=== PATIENT | female | born 1945 | race Caucasian/White ===

== ENCOUNTER 2018-06-27 12:58 | Outpatient (CLI) | payer MEDICARE, OTHER ==
--- NOTE | 2018-06-27 14:25 | RAD ---
LUMBAR SPINE TWO VIEWS: History: Back pain. FINDINGS: Lumbar vertebrae maintain normal height and alignment. There is loss of disc space at L5-S1. Mild deg enerative spurring. Moderate facet hypertrophy at L4-5 and L5-S1. No evidence of spondylolisthesis. IMPRESSION: Mild to moderate degenerative change as described. POS: [facility]
--- NOTE | 2018-06-27 14:26 | RAD ---
THORACIC SPINE TWO VIEWS: History: Back pain with osteoporosis. FINDINGS: Slight curvature to the right in the AP view. Thoracic vertebrae maintain normal height and alignment . Mild degenerative osteophytes are seen. No lytic or blastic process. No acute compression deformity . IMPRESSION: Mild degenerative changes of thoracic spine. POS: [facility]
--- NOTE | 2018-06-27 15:37 | RAD ---
LEFT KNEE 2 VIEWS: Date: 06/27/18 HISTORY: Surgery last year. Pain. FINDINGS: Extensive internal fixation hardware along the proximal tibia. No perihardware lucency. Joint spaces appear to be preserved. There is diffuse bone demineralization. No joint effusion. IMPRESSION: Uncomplicated internal fixation hardware. POS: [facility]
== END 2018-06-27 12:59 | disposition home or self-care (01) ==
LOC: BICMAMMO 12:58
PROVIDERS: ATTEND Internal Medicine Geriatric Medicine
DX: M47.816 Spondylosis without myelopathy or radiculopathy, lumbar region (principal); M54.5 Low back pain; M25.562 Pain in left knee; M47.894 Other spondylosis, thoracic region; M47.896 Other spondylosis, lumbar region; Z98.890 Other specified postprocedural states
CPT/HCPCS: 72070; 72100; 77063; 77067

== ENCOUNTER 2018-07-10 13:22 | Outpatient (CLI) | payer MEDICARE, OTHER | END 2018-07-10 13:23 | disposition home or self-care (01) | LOC: BICMAMMO 13:22 | PROVIDERS: ATTEND Internal Medicine Geriatric Medicine | DX: R92.2 Inconclusive mammogram (principal) | CPT/HCPCS: 77065; G0279 ==

== ENCOUNTER 2019-02-07 10:33 | Observation (INO) | payer MEDICARE, OTHER ==
[2019-02-07 11:19] LABS: #Eosinphils 0.1 thou/uL (0.0-0.7); #Lymphocytes 1.6 thou/uL (1.20-3.40); #Monocytes 0.3 thou/uL (0.11-0.59); #Neutrophils 3.9 thou/uL (1.40-6.50); %Basophils 0.2 % (0.0-1.0); %Eosinophils 1.5 % (0.0-10.0); %Lymphocytes 27.4 % (21.0-51.0); %Monocytes 4.6 % (0.0-10.0); %Neutrophils 66.2 % (42.0-75.0); Hemoglobin 12.1 g/dL (12.0-16.0); Mean Corpuscular HGB CONC 32.9 g/dL (32.0-36.0); Mean Corpuscular Hemoglobin 29.8 pg (27.0-31.0); Mean Corpuscular Volume 90.6 fL (78.0-98.0); Mean Platelet Volume 7.7 fL (7.4-10.4); Platelet Count 263 thou/uL (130-400); RBC Distribution Width 11.8 % (11.5-14.5); Red Blood Cell (RBC) Count 4.07 mill/uL (4.20-5.40); White Blood Cell (WBC) Count 5.9 thou/uL (4.8-10.8)
--- NOTE | 2019-02-07 11:39 | RAD ---
XR Chest 1 View Portable HISTORY: Fall chest pain COMPARISON: None FINDINGS: The heart size is normal. The lungs are well expanded without focal areas of consolidation, pneumothorax or pleural effusions. IMPRESSION: No radiographic evidence of acute cardiopulmonary process.
[2019-02-07 11:46] LABS: ALT (SGPT) 16 U/L (8-55); AST (SGOT) 21 U/L (5-34); Albumin 3.7 g/dL (3.4-4.8); Alkaline Phosphatase 50 U/L (40-150); Anion Gap 11 mmol/L (10-20); BUN (Urea Nitrogen) 11 mg/dL (9.8-20.1); Bilirubin, Total 0.5 mg/dL (0.2-1.2); Calc. Creatinine Clearance 0 mL/min (70-130); Calcium 9.3 mg/dL (7.8-10.44); Carbon Dioxide 27 mmol/L (23-31); Chloride 104 mmol/L (98-107); Estimated GFR-MDRD 70; Globulin 2.1 g/dL (2.4-3.5); Glucose 123 mg/dL (83-110); Potassium 3.8 mmol/L (3.5-5.1); Protein, Total 5.8 g/dL (6.0-8.3); Sodium 138 mmol/L (136-145)
--- NOTE | 2019-02-07 12:00 | RAD ---
XR Wrist 3 Rt View STANDARD: 02/07/2019 11:01 AM CLINICAL INDICATION: Fall with pain COMPARISON: None. FINDINGS: Fracture:Subtle lucency is seen at the radial styloid with mild articular surface irregularity Arthropathy:Mild arthropathy. Evidence of prior trapeziectomy. Incidental findings:Surgical anchors are seen at the radial aspect of the carpus and base of hand There is generalized demineralization of osseous structures, with pronounced areas of lucency at the imaged radial diaphysis, nonspecific. IMPRESSION: 1. Subtle osseous irregularity underlying the radial styloid. Correlate for focal, new onset pain. 2. Generalized osseous demineralization. Possibility of underlying osseous infiltrative process canno t be excluded. If there is clinical concern, follow-up with whole body bone scan may prove useful. 3. Postsurgical changes of the radial aspect of the wrist and base of hand.
[2019-02-07 12:29] LABS: INR-International Normal Ratio 1.1; Prothrombin Time 13.9 SEC (12.0-14.7)
--- NOTE | 2019-02-07 12:45 | RAD ---
RIGHT HIP 2 VIEWS: HISTORY: Fall, right hip pain. FINDINGS/IMPRESSION: The fractures involving the superior and inferior pubic rami. POS: [facility]
[2019-02-07] MEDS ORDERED: Fentanyl 100 MCG/2 ML VIAL ONE (13:15)
[2019-02-07] MEDS ORDERED: Ondansetron PF 4 MG/2 ML Vial IVP PRN (13:32)
[2019-02-07] MEDS ORDERED: Dextrose 5% in Water 1,000 ML IV PRN (13:32)
[2019-02-07] MEDS ORDERED: Dextrose 50% Abboject 50 ML SYRINGE SLOW IVP PRN (13:32)
[2019-02-07] MEDS ORDERED: hydrALAZINE 20 MG/ML VIAL SLOW IVP PRN (13:32)
[2019-02-07] MEDS ORDERED: Morphine 2 MG/ML SYRINGE SLOW IVP PRN (13:32)
[2019-02-07] MEDS ORDERED: Promethazine HCl 25 MG/ML VIAL IM PRN (13:32)
[2019-02-07] MEDS ORDERED: traMADol HCl 50 MG TAB PO PRN (13:35)
--- NOTE | 2019-02-07 13:45 | CON ---
DATE OF CONSULTATION: 02/07/2019 CONSULTING PHYSICIAN: Dr. Rc Orlando. REASON FOR CONSULTATION: Superior and inferior pubic rami fractures. HISTORY OF PRESENT ILLNESS: This is a 73-year-old female, who presented to our facility after a ground level fall when she was tripped by a dog. She presented with complaints of right wrist pain and right hip pain. Further workup and evaluation showed fractures of the right inferior and superior pubic rami. X-rays of the wrist were negative for acute findings. She denies any head trauma or loss of consciousness. Of note, she does report an injury from a different dog that she tripped over two days ago, for which she was seen and x-rays were obtained of the left wrist. There were no acute findings in this x-ray either. She was placed in a Velcro volar wrist splint. Currently at bedside, the patient has friends with her. She reports pain and difficulty with standing. She has some discomfort in her back right now, which she says is radiating. Some dull pain in her right hip. Otherwise, no numbness or tingling or other complaints. PAST MEDICAL HISTORY: Significant for hypothyroidism, colitis, osteoporosis. PAST SURGICAL HISTORY: Significant for appendectomy, section, hysterectomy, left hip replacement, left knee replacement, spine surgery, and tonsillectomy. SOCIAL HISTORY: The patient lives with friends. She has an upstairs room in their house. She is an independent ambulator. She denies any alcohol use or drug use. The patient is a former tobacco user, smoked cigarettes and quit smoking more than 10 years ago. FAMILY HISTORY: Reviewed and noncontributory. REVIEW OF SYSTEMS: A 10-point review of systems was conducted and otherwise negative except for stated above. PHYSICAL EXAMINATION: VITAL SIGNS: Blood pressure 127/65, pulse of 63, respiratory rate of 16, temperature of 98.1, and O2 saturation 96% on room air. GENERAL: The patient is awake and alert. She is in no apparent distress. She is lying supine in the ER with friends present at bedside. She is pleasant and cooperative with exam findings today. HEENT: Head is normocephalic and atraumatic. NECK: Supple. Trachea, midline. LUNGS: Breathing is nonlabored. EXTREMITIES: The lower extremities were evaluated. Leg lengths appear equal. No external rotation or shortening. The patient is able to actively flex the hip while in bed. Distal neurovascular status intact. Skin is intact overlying the hip region. No ecchymosis noted. Evaluation of the right wrist shows some swelling over the dorsum of the wrist, there appears to be some synovial fluid. This is mildly tender to palpation. She is able to flex and extend. She is able to make a fist. Distal neurovascular status is intact. RADIOGRAPHIC STUDIES: Reviewed today including three views of the right wrist as well as views of the right hip, demonstrate no acute findings in the right wrist. Views of the hip show a superior and inferior pubic rami fracture. The superior pubic rami fracture is mildly displaced. No other acute findings are visualized. ASSESSMENT: Status post ground level fall with right superior and inferior pubic rami fractures, wrist sprain on the right. PLAN: At this time, I have discussed this patient with Dr. Orlando as well as with Trauma Services today. I think she is a good candidate to be transferred from the ER over to inpatient rehab, being that this is a nonoperative fracture in the pelvis. Unfortunately, at this time, there are no available beds at rehab. The patient is unable to be discharged back home due to her inability to ambulate and living on the second floor. We would like to admit her to the Trauma Services. They are amenable to this plan of care. She may weightbear as tolerated with assistance from Physical Therapy. This is going to be a bit tricky, because she has had two wrist injuries in the last two days. If she is able, she may weightbear through her wrist with her wrist splints. If she is unable secondary to pain, we will provide her with a platform walker. Once a bed becomes available at inpatient rehab, we will transfer her that way. She may weightbear as tolerated on the right lower extremity. Job ID: [id number]
[2019-02-07] MEDS: traMADol HCl 50 MG TAB PO SCH ×2 (16:24→20:34)
[2019-02-07] MEDS: Acetaminophen 500 MG TAB PO SCH ×2 (16:26→20:32)
--- NOTE | 2019-02-07 17:25 | HP ---
TRAUMA SURGEON: Dr. Sylvester. CONSULTING PHYSICIAN: Dr. Orlando. HISTORY OF PRESENT ILLNESS: The patient is a 73-year-old female who presented to the emergency department today via EMS. She reported while walking her dog on a leash, another unleashed dog approached hers. Subsequently, the dogs chased each other around her, and the patient became hung up in her leash, and she fell onto her right side. She denies loss of consciousness or anticoagulation use. She was not ambulatory on the scene and arrived via EMS. On my evaluation, she reported pelvic and lower back pain. Her right wrist was also swollen and painful as well. She denies nausea, vomiting, or diarrhea. Denies weakness, decreased sensation, numbness, or tingling. REVIEW OF SYSTEMS: All additional 10-point review of systems negative except as indicated above. PAST MEDICAL HISTORY: Hypothyroidism and colitis. PAST SURGICAL HISTORY: Surgery to repair left knee fracture, bilateral hand basal joint surgery, bilateral cataract surgery, left hip replacement surgery, right hip fracture surgery, bunion surgery, D and C, , endometriosis surgery, surgery for L5 ruptured disk, appendectomy, tonsillectomy. MEDICATIONS: Levothyroxine and Estrace. ALLERGIES: NO KNOWN DRUG ALLERGIES. HOWEVER, BECAUSE OF THE PATIENT'S COLITIS , SHE SHOULD AVOID THE FOLLOWING MEDICINES; ACARBOSE, ASPIRIN, NSAIDS, CLOZAPINE, ENTACAPONE, FLAVONOIDS, PROTON PUMP INHIBITORS, RANITIDINE, SERTRALINE, TICLOPIDINE, CARBAMAZEPINE, CELECOXIB, DULOXETINE, FLUVASTATIN, FLUTAMIDE, OXETORONE, MADOPAR , PAROXETINE, SIMVASTATIN, STALEVO, CIMETIDINE, GOLD SALTS, PIASCLEDINE. PHYSICAL EXAMINATION: VITAL SIGNS: Temperature 98.8, pulse 60, respirations 16, oxygen saturation 99 % on room air, blood pressure 132/68. PRIMARY SURVEY: Airway intact. Adequate breath sounds bilaterally. 2+ pulses palpable in the bilateral radials, femorals, and DPs bilaterally. GCS is 15. Gross motor and sensation are intact. No lacerations or external bleeding. Bruising to the posterior aspect of the right wrist. SECONDARY SURVEY: HEAD: Normocephalic and atraumatic. No gross palpable skull deformities or tenderness. EYES: Pupils 3 to 2, equal, round, and reactive to light bilaterally. ENT: No hemotympanum. No epistaxis. No septal hematoma. Midface stable to manipulation. No blood in the oropharynx. Dentition is intact. No anterior neck tenderness/crepitus/injury. C-SPINE: No step-offs or deformities. Nontender. C-collar not in place. CHEST: Nontender. No crepitus. No abrasions or ecchymosis noted. Equal chest movement. ABDOMEN: Soft, nontender, and nondistended. PELVIS: Stable to palpation. Right-sided tenderness. No abrasions or ecchymosis. RECTAL: Deferred. GENITOURINARY: Deferred. EXTREMITIES: Right-sided wrist swelling and bruising to the posterior surface. Otherwise, no bony deformities. No abrasions noted. 2+ pulses in the bilateral radials, femorals, and DPs. BACK/SPINE: No step-offs, deformities, or tenderness to palpation of the thoracic or lumbar spine. No abrasions or ecchymosis noted. NEUROLOGIC: 5/5 strength in the bilateral online content editor, plantar flexion, and dorsiflexion. Gross normal sensation x4 extremities. GCS is 15. Pupils are equal, round, and reactive to light bilaterally. LABORATORY FINDINGS: White count 5.9, hemoglobin 12.1, hematocrit 36.8, platelets 263. INR 1.1. Sodium 138, potassium 3.8, chloride 104, carbon dioxide 24, BUN 11, creatinine 0.80, glucose 138. DIAGNOSTIC FINDINGS: Chest x-ray demonstrates no radiographic evidence of acute cardiopulmonary process. Right hip x-ray demonstrates the fracture involving the superior and inferior pubic rami. X-ray of the right wrist demonstrates subtle osseous irregularity underlying the radial styloid, correlate to focal new onset pain, generalize osseous demineralization. Possibility of underlying osseous infiltrative process cannot be excluded. If there is clinical concern, followup with whole-body scan may prove useful. Postsurgical changes to the radial aspect of the wrist and base of the hand. ASSESSMENT: 1. Status post mechanical fall from standing. 2. Right inferior and superior pubic rami fracture. 3. Sprain to right wrist with styloid irregularity. 4. Sprain to left wrist, from a few days ago. 5. History of hypothyroidism and colitis. PLAN: The patient will be admitted to the Trauma Service for pain control and evaluation for acute rehab. She will have a regular diet. Pain control will be with scheduled Tylenol, scheduled tramadol p.r.n. with additional 50 mg for breakthrough pain as well as p.r.n. morphine. The patient cannot take NSAIDs or aspirin due to previous colitis. She is to work with Physical and Occupational Therapy. We will restart her home medications as clinically indicated. We will hold DVT chemoprophylaxis at this time. The patient will be discussed with Dr. Sylvester after this dictation. Job ID: [id number] [facility]
[2019-02-07 18:44] VITALS: BMI 18.8
[2019-02-07] MEDS ORDERED: diphenhydrAMINE 12.5 MG/5 ML UDCUP PO PRN (18:51)
[2019-02-07] MEDS: Senokot S 8.6-50 MG TAB PO SCH (20:33)
[2019-02-07] MEDS ORDERED: Famotidine 20 MG TAB PO SCH (21:00)
[2019-02-08] MEDS: traMADol HCl 50 MG TAB PO SCH ×4 (02:19→19:03)
[2019-02-08] MEDS: Acetaminophen 500 MG TAB PO SCH ×4 (02:19→19:01)
[2019-02-08] MEDS: Levothyroxine Sodium 75 MCG TAB PO SCH (05:17)
[2019-02-08] MEDS ORDERED: Teriparatide [Forteo] 20 MCG SC SCH ×2 (09:00→21:00)
[2019-02-08] MEDS: Senokot S 8.6-50 MG TAB PO SCH ×2 (09:03→20:24)
[2019-02-08] MEDS: Polyethylene Glycol 3350 17 GM Packet PO SCH (09:09)
[2019-02-08 09:17] LABS: #Eosinphils 0.1 thou/uL (0.0-0.7); #Lymphocytes 1.6 thou/uL (1.20-3.40); #Monocytes 0.5 thou/uL (0.11-0.59); #Neutrophils 3.7 thou/uL (1.40-6.50); %Basophils 0.8 % (0.0-1.0); %Eosinophils 2.1 % (0.0-10.0); %Lymphocytes 26.3 % (21.0-51.0); %Monocytes 7.6 % (0.0-10.0); %Neutrophils 63.2 % (42.0-75.0); Hemoglobin 11.8 g/dL (12.0-16.0); Mean Corpuscular HGB CONC 32.5 g/dL (32.0-36.0); Mean Corpuscular Hemoglobin 29.6 pg (27.0-31.0); Mean Corpuscular Volume 91.1 fL (78.0-98.0); Mean Platelet Volume 7.6 fL (7.4-10.4); Platelet Count 213 thou/uL (130-400); Red Blood Cell (RBC) Count 3.99 mill/uL (4.20-5.40); White Blood Cell (WBC) Count 5.9 thou/uL (4.8-10.8)
[2019-02-08 09:36] LABS: Anion Gap 7 mmol/L (10-20); BUN (Urea Nitrogen) 10 mg/dL (9.8-20.1); Calc. Creatinine Clearance 53 mL/min (70-130); Calcium 9.1 mg/dL (7.8-10.44); Carbon Dioxide 29 mmol/L (23-31); Chloride 101 mmol/L (98-107); Estimated GFR-MDRD 77; Glucose 114 mg/dL (83-110); Potassium 3.7 mmol/L (3.5-5.1); Sodium 133 mmol/L (136-145)
[2019-02-08] MEDS: Enoxaparin Sodium 30 MG/0.3 ML SYRINGE SC SCH (09:54)
[2019-02-08] MEDS ORDERED: Melatonin 3 MG TAB PO PRN (19:21)
--- NOTE | 2019-02-08 21:01 | PRG ---
DATE OF SERVICE: 02/08/2019 SUBJECTIVE: This is a 73-year-old female with a mechanical fall. The patient sustained a right superior and inferior pubic rami fracture, right wrist sprain with styloid deformity. The patient's injuries are nonoperative according to Orthopedic Surgery. The patient had no overnight events. The patient was admitted for pain control and the need for inpatient rehab. The patient reports that her pain is well controlled. The patient with a knee immobilizer in place. The patient reports that she did not sleep well last night, but it was not due to pain, states she just was unable to fall asleep. OBJECTIVE: VITAL SIGNS: Temperature 97.1, pulse 56, respirations 16, SpO2 of 95% on room air, blood pressure 99/64. GENERAL: The patient is awake, alert, in no distress, lying in hospital bed. HEENT: Head is normocephalic, atraumatic. Mucous membranes are moist. CHEST: Equal chest rise and fall. No respiratory distress. Bilateral breath sounds clear. HEART: Regular rate and rhythm. No pedal edema. ABDOMEN: Soft, nontender, nondistended. MUSCULOSKELETAL: Tenderness in right hip. EXTREMITIES: Moves all extremities. Positive distal pulses 2+. Left wrist splint in place. The patient with old wrist sprain. LABORATORY DATA: WBC 5.9, RBC 3.99, hemoglobin 11.8, platelets 213. Sodium 133, potassium 3.7, chloride 101, BUN 10, creatinine 0.74, estimated GFR 77, glucose 114, calcium 9.1, magnesium 2.0. IMPRESSION: 1. Status post mechanical fall from standing. 2. Right inferior and superior pubic rami fracture, nonoperative. 3. Sprain to right wrist with styloid irregularity. 4. Sprained left wrist from a few days ago. 5. History of hypothyroidism and colitis. PLAN: We will continue pain regimen. The patient has pending rehab placement. We will continue regular diet. We will continue to refrain from any NSAIDs or aspirin due to previous colitis. We will start the patient on chemical DVT prophylaxis with Lovenox. We will continue physical and occupational therapy. We will restart the patient's home levothyroxine. We will place the patient on melatonin as the patient stated she had difficulty falling asleep last night. Plan was discussed with Dr. English, who agrees. Job ID: [id number]
[2019-02-09] MEDS: traMADol HCl 50 MG TAB PO SCH ×3 (00:43→14:02)
[2019-02-09] MEDS: Acetaminophen 500 MG TAB PO SCH ×3 (00:45→14:02)
[2019-02-09] MEDS: Levothyroxine Sodium 75 MCG TAB PO SCH (06:45)
[2019-02-09] MEDS ORDERED: Estradiol 1 MG TAB PO SCH (09:00)
[2019-02-09] MEDS ORDERED: Fleet Enema 133 ML BOT PR SCH (09:15)
[2019-02-09] MEDS: Polyethylene Glycol 3350 17 GM Packet PO SCH (09:42)
[2019-02-09] MEDS: Senokot S 8.6-50 MG TAB PO SCH (09:42)
[2019-02-09] MEDS: Enoxaparin Sodium 30 MG/0.3 ML SYRINGE SC SCH (09:42)
--- NOTE | 2019-02-09 10:41 | PRG ---
DATE OF SERVICE: 02/09/2019 SUBJECTIVE: Ms. Bland is complaining of impacted colon, has not had a bowel movement in a few days. She states that she does enemas at home to help. This is a longstanding chronic constipation that she has. Her rehab placement is pending, but she is having nausea associated with this constipation. No abdominal pain. OBJECTIVE: VITAL SIGNS: Blood pressure is 155/59, pulse 56, respirations are 16. She is afebrile. CHEST: Coarse. HEART: Regular rate. ABDOMEN: Mildly distended. EXTREMITIES: No ischemia or edema. ASSESSMENT: 1. Mechanical fall with pubic rami fracture, nonoperative. 2. Right and left wrist sprains. PLAN: She is to rehab today and we will give Fleets Enema. Job ID: [id number]
[2019-02-09 13:29] VITALS: BP 150/76; TEMP 97.8
--- NOTE | 2019-02-09 19:57 | DIS ---
DATE OF ADMISSION: 02/07/2019 DATE OF DISCHARGE: 02/09/2019 This is Juanita Sprague NP dictating a report for Dylan English MD. ATTENDING ADMITTING PHYSICIAN: Dr. Sylvester. CONSULTING PHYSICIAN: Dr. Orlando. DISCHARGE ATTENDING: Dylan English MD PROCEDURES: Chest x-ray on 02/07/2019, no radiographic evidence of acute cardiopulmonary process. Right hip x-ray, impression, fracture involving the superior and inferior pubic rami. X-ray of the right wrist demonstrates subtle osseous irregularity underlying the radial styloid, correlate to focal new onset pain, generalized osseous demineralization. Possibility of underlying osseous infiltrative process cannot not be excluded. If there is clinical concern, followup with whole-body scan may prove useful. Postsurgical changes to the radial aspect of the wrist and base of the hand. PRIMARY DIAGNOSES: 1. Right inferior and superior pubic rami fracture, nonoperative, status post mechanical fall from standing. 2. Sprain to right wrist with styloid irregularity. SECONDARY DIAGNOSES: Sprain to the left wrist from several days ago, history of hypothyroidism, and colitis. DISCHARGE MEDICATIONS: 1. Tylenol 1000 mg q.6 hours. 2. Benadryl 12.5 mg p.o. at bedtime as needed. 3. Lovenox 30 mg subcu daily. 4. Estrace 0.5 mg q.2 days. 5. Synthroid 75 mcg p.o. daily. 6. Melatonin 3 mg p.o. at bedtime as needed. 7. MiraLAX as needed. 8. Senna S as needed. 9. Forteo 20 mcg subcu daily. 10. Tramadol 50 mg p.o. q.6 hours as needed for pain. DISCONTINUE MEDICATIONS: None. HISTORY OF PRESENT ILLNESS AND HOSPITAL COURSE: This is a 73-year-old female, who presented to the emergency room via EMS. The patient was walking her dog on a leash when she became hung up on the leash and fell. The patient fell onto her right side. The patient had no loss of consciousness. The patient denied any nausea, vomiting, or diarrhea. Denied any weakness or decreased sensation in extremities. The patient also denied any chest pain or shortness of breath prior to falling. The patient's injuries were nonoperative. The patient was attempted to be placed in inpatient rehab from the emergency room, but there were no inpatient rehab beds available at that time. The patient was admitted for pain control. The patient continued to work with Physical and Occupational Therapy. On the day of discharge, the patient was examined by Dr. English. The patient's vital signs were stable and exam was unremarkable including cardiopulmonary and GI exam. The patient was deemed stable for discharge to inpatient rehab for continued physical and occupational therapy. DISPOSITION: Stable. DISCHARGE INSTRUCTIONS: 1. Location: Inpatient rehab. 2. Diet: Regular diet. 3. Activity: Weightbearing as tolerated in all extremities. Bilateral wrist splint to wear for comfort. 4. Follow up with primary care physician in 10 days. No need to follow up with Trauma, Dr. Sylvester. Call for any questions. This is just a summary of the hospital course. Job ID: [id number] [facility]TD[facility]
== END 2019-02-09 13:54 ==
LOC: ERS 10:33 → SURG B 13:32
PROVIDERS: ADMIT Specialist; ATTEND Specialist
DX: S32.511A Fracture of superior rim of right pubis, initial encounter for closed fracture (principal); S63.501A Unspecified sprain of right wrist, initial encounter; E03.9 Hypothyroidism, unspecified; K52.9 Noninfective gastroenteritis and colitis, unspecified; Z79.899 Other long term (current) drug therapy; W01.0XXA Fall on same level from slipping, tripping and stumbling without subsequent striking against object, initial encounter; Y93.K1 Activity, walking an animal
CPT/HCPCS: 71045; 73110; 73502; 80048; 80053; 83735; 85025 ×2; 85384; 85610; 93005; 96361; 96372 ×2; 96374; 97139 ×5; 97530 ×2; 99285; G0378 ×2; 36415; G0390; J1650; J3010

== ENCOUNTER 2019-05-16 14:43 | Outpatient (CLI) | payer MEDICARE, OTHER ==
--- NOTE | 2019-05-16 15:49 | BD ---
DEXA BONE DENSITOMETRY: (Dual energy x-ray absorptiometry) DATE: 05/16/2019 HISTORY: 73-year old white female for age-related, post-menopausal, osteoporosis screening. weight: 110 lbs height: 63.5 in. age of menopause: 44 COMPARISON: None available. FINDINGS: The bone mineral density (BMD) is given in grams per square centimeter (g/cm2): LUMBAR SPINE: BMD (g/cm^2) T score Z score L1: 0.768 -2.0 0.0 L2: 0.778 -2.3 0.0 L3: 0.812 -2.5 -0.1 L4: 0.830 -2.1 0.4 Total: 0.799 -2.3 0.1 HIP: BMD (g/cm^2) T score Z score Femoral neck: 0.602 -2.2 -0.2 Total: 0.702 -2.0 -0.3 FRAX WHO fracture risk assessment tool: 10 year fracture risk* Major osteoporotic fracture: 15 % Hip fracture: 4.3 % Reported risk factors: US (), neck BMD = 0.602 (g/cm^2), BMI = 19.2, and rheumatoid arthritis. *Fracture probability is calculated for an untreated patient. Fracture probability may be lower if th e patient has received treatment. IMPRESSION: 1.) The mean bone mineral density of the lumbar spine is osteopenic. Fracture risk is increased. 2) The bone mineral density of the femoral neck is osteopenic. Fracture risk is increased.
== END 2019-05-16 14:44 | disposition home or self-care (01) ==
LOC: BICMAMMO 14:43
PROVIDERS: ATTEND Internal Medicine Rheumatology
DX: M81.0 Age-related osteoporosis without current pathological fracture (principal); M85.89 Other specified disorders of bone density and structure, multiple sites
CPT/HCPCS: 77080

== ENCOUNTER 2019-07-15 10:16 | Outpatient (CLI) | payer MEDICARE, OTHER ==
--- NOTE | 2019-07-15 15:36 | MMO ---
Bilateral MAMMO Bilat Screen [facility]. CLINICAL HISTORY: Patient is 73 years old and is seen for screening. The patient has no family history of breast cancer. The patient has no personal history of cancer. The patient has a history of right needle biopsy more than 10 years ago - benign. VIEWS: The views performed were: bilateral craniocaudal with tomosynthesis; bilateral mediolateral oblique with tomosynthesis; and bilateral exaggerated craniocaudal. FILMS COMPARED: The present examination has been compared to prior imaging studies performed at [facility] on 06/27/2018 and 07/10/2018, and at [facility] on 06/14/2016 and 06/20/2017. This study has been interpreted with the assistance of computer-aided detection. MAMMOGRAM FINDINGS: The breasts are heterogeneously dense, which could obscure a lesion on mammography. Benign calcifications are noted bilaterally. Right biopsy clip. There are no suspicious masses, suspicious calcifications, or new areas of architectural distortion. IMPRESSION: THERE IS NO MAMMOGRAPHIC EVIDENCE OF MALIGNANCY. A ROUTINE FOLLOW-UP MAMMOGRAM IN 1 YEAR IS RECOMMENDED. THE RESULTS OF THIS EXAM WERE SENT TO THE PATIENT. ACR BI-RADS Category 2 - Benign finding MAMMOGRAPHY NOTE: 1. A negative mammogram report should not delay a biopsy if a dominant of clinically suspicious mass is present. 2. Approximately 10% to 15% of breast cancers are not detected by mammography. 3. Adenosis and dense breasts may obscure an underlying neoplasm. Reported by: KENYA MCCRAY MD Electonically Signed: [id number]
== END 2019-07-15 10:17 | disposition home or self-care (01) ==
LOC: BICMAMMO 10:16
PROVIDERS: ATTEND Family Medicine
DX: Z12.31 Encounter for screening mammogram for malignant neoplasm of breast (principal); Z91.89 Other specified personal risk factors, not elsewhere classified
CPT/HCPCS: 77063; 77067

== ENCOUNTER 2020-07-22 10:01 | Outpatient (CLI) | payer MEDICARE, OTHER ==
--- NOTE | 2020-07-22 11:22 | MMO ---
Bilateral MAMMO Bilat Screen [facility]. CLINICAL HISTORY: Patient is 74 years old and is seen for screening. The patient has no family history of breast cancer. The patient has no personal history of cancer. The patient has a history of right needle biopsy more than 10 years ago - benign. VIEWS: The views performed were: bilateral craniocaudal with tomosynthesis and bilateral mediolateral oblique with tomosynthesis. FILMS COMPARED: The present examination has been compared to prior imaging studies performed at [facility] [place] [facility] on 06/27/2018, 07/10/2018 and 07/15/2019, and at [facility] on 06/20/2017. This study has been interpreted with the assistance of computer-aided detection. MAMMOGRAM FINDINGS: The breasts are heterogeneously dense, which could obscure a lesion on mammography. Benign calcifications are noted bilaterally. Right biopsy clip. There are no suspicious masses, suspicious calcifications, or new areas of architectural distortion. IMPRESSION: THERE IS NO MAMMOGRAPHIC EVIDENCE OF MALIGNANCY. A ROUTINE FOLLOW-UP MAMMOGRAM IN 1 YEAR IS RECOMMENDED. THE RESULTS OF THIS EXAM WERE SENT TO THE PATIENT. ACR BI-RADS Category 2 - Benign finding MAMMOGRAPHY NOTE: 1. A negative mammogram report should not delay a biopsy if a dominant of clinically suspicious mass is present. 2. Approximately 10% to 15% of breast cancers are not detected by mammography. 3. Adenosis and dense breasts may obscure an underlying neoplasm. Reported by: KENYA MCCRAY MD Electonically Signed: [id number]
== END 2020-07-22 10:02 | disposition home or self-care (01) ==
LOC: BICMAMMO 10:01
PROVIDERS: ATTEND Family Medicine
DX: Z12.31 Encounter for screening mammogram for malignant neoplasm of breast (principal)
CPT/HCPCS: 77063; 77067

== ENCOUNTER 2020-08-12 08:51 | Outpatient (CLI) | payer MEDICARE, OTHER ==
--- NOTE | 2020-08-12 09:29 | BD ---
EXAM: Bone densitometry using DEXA HISTORY: 74 yo female. Screening for postmenopausal osteoporosis FINDINGS: L1--bone mineral density 0.786 g/sq cm; T score -1.9 ; Z score 0.3 L2--bone mineral density 0.802 g/sq cm; T score -2.1 ; Z score 0.3 L3--bone mineral density 0.838 g/sq cm; T score -2.2 ; Z score 0.2 L4--bone mineral density 0.861 g/sq cm; T score -1.8 ; Z score 0.7 Total L1-L4--bone mineral density 0.824 g/sq cm; T score -2.0 ; Z score 0.4 Left femoral neck--bone mineral density0.615; T score -2.1 ; Z score 0.0 Total proximal left femur--bone mineral density 0.730; T score -1.7 ; Z score 0.0 There has been an interval improvement of 3.1% in the BMD of the lumbar spine and a improvement of 4.0% in the BMD of the proximal femur since the previous study of 05/16/2019. IMPRESSION: Osteopenia
== END 2020-08-12 08:52 | disposition home or self-care (01) ==
LOC: BICMAMMO 08:51
PROVIDERS: ATTEND Family Medicine
DX: M81.0 Age-related osteoporosis without current pathological fracture (principal); M85.89 Other specified disorders of bone density and structure, multiple sites
CPT/HCPCS: 77080

== ENCOUNTER 2021-07-26 14:56 | Outpatient (CLI) | payer MEDICARE | END 2021-07-26 14:57 | disposition home or self-care (01) | LOC: BICMAMMO 14:56 | PROVIDERS: ATTEND Family Medicine | DX: Z12.31 Encounter for screening mammogram for malignant neoplasm of breast (principal) | CPT/HCPCS: 77063; 77067 ==

== ENCOUNTER 2022-07-27 14:51 | Outpatient (CLI) | payer MEDICARE | END 2022-07-27 14:52 | disposition home or self-care (01) | LOC: BICMAMMO 14:51 | PROVIDERS: ATTEND Family Medicine | DX: Z12.31 Encounter for screening mammogram for malignant neoplasm of breast (principal) | CPT/HCPCS: 77063; 77067 ==

== ENCOUNTER 2022-08-18 13:17 | Outpatient (CLI) | payer MEDICARE | END 2022-08-18 13:18 | disposition home or self-care (01) | LOC: BICMAMMO 13:17 | PROVIDERS: ATTEND Family Medicine | DX: Z13.820 Encounter for screening for osteoporosis (principal); N95.9 Unspecified menopausal and perimenopausal disorder; M85.89 Other specified disorders of bone density and structure, multiple sites | CPT/HCPCS: 77080 ==

== ENCOUNTER 2023-08-14 15:14 | Outpatient (CLI) | payer MEDICARE | END 2023-08-14 15:15 | disposition home or self-care (01) | LOC: BICMAMMO 15:14 | PROVIDERS: ATTEND Family Medicine | DX: Z12.31 Encounter for screening mammogram for malignant neoplasm of breast (principal); Z91.89 Other specified personal risk factors, not elsewhere classified | CPT/HCPCS: 77063; 77067 ==

== ENCOUNTER 2023-10-23 07:59 | Outpatient (CLI) | payer MEDICARE | END 2023-10-23 08:00 | disposition home or self-care (01) | LOC: NM 07:59 | PROVIDERS: ATTEND Orthopaedic Surgery Adult Reconstructive Orthopaedic Surgery | DX: T84.84XA Pain due to internal orthopedic prosthetic devices, implants and grafts, initial encounter (principal); R93.7 Abnormal findings on diagnostic imaging of other parts of musculoskeletal system | CPT/HCPCS: 78315; A9503 ==

== ENCOUNTER 2023-10-27 14:11 | Outpatient (CLI) | payer MEDICARE | END 2023-10-27 14:12 | disposition home or self-care (01) | LOC: BICMAMMO 14:11 | PROVIDERS: ATTEND Family Medicine | DX: M81.0 Age-related osteoporosis without current pathological fracture (principal) | CPT/HCPCS: 77080 ==

== ENCOUNTER 2024-01-16 17:51 | Inpatient (IN) | payer MEDICARE ==
[~2024-01-16 17:51] MED LIST: Iopamidol-370 76% 500 ML MDV (1 ML CHARGE) ONE
[2024-01-16] MEDS ORDERED: Morphine 4 MG/ML VIAL ONE ×3 (18:30→20:43)
[2024-01-16] MEDS ORDERED: Ondansetron PF 4 MG/2 ML Vial ONE (18:30)
[2024-01-16 19:19] LABS: #Basophils 0.07 10x3/uL (0.0-0.2); %Basophils 0.7 % (0.0-1.0); %Eosinophils 1.4 % (0.0-10.0); %Lymphocytes 17.5 % (21.0-51.0); %Monocytes 6.2 % (0.0-10.0); %Neutrophils 73.7 % (42.0-75.0); Hematocrit 36.6 % (36.0-47.0); Hemoglobin 11.8 g/dL (12.0-16.0); Mean Corpuscular HGB CONC 32.2 g/dL (32.0-36.0); Mean Corpuscular Hemoglobin 28.2 pg (27.0-31.0); Mean Corpuscular Volume 87.4 fL (78.0-98.0); Platelet Count 349 10x3/uL (130-400); RBC Distribution Width 13.5 % (11.5-14.5); Red Blood Cell (RBC) Count 4.19 mill/uL (4.20-5.40)
[2024-01-16 19:32] LABS: PTT 26.8 sec (22.9-36.1); Prothrombin Time 13.3 sec (12.0-14.7)
[2024-01-16 19:46] LABS: Globulin 3.1 g/dL (2.4-3.5)
[2024-01-16] MEDS ORDERED: Ipratropium/Albuterol 3 ML NEB NEB PRN (19:48)
[2024-01-16] MEDS ORDERED: Ondansetron PF 4 MG/2 ML Vial IVP PRN (19:48)
[2024-01-16] MEDS ORDERED: hydrALAZINE 20 MG/ML VIAL SLOW IVP PRN (19:48)
[2024-01-16 19:50] LABS: ALT (SGPT) 17 U/L (8-55); AST (SGOT) 24 U/L (5-34); Albumin 3.8 g/dL (3.4-4.8); Alkaline Phosphatase 67 U/L (40-110); Anion Gap 15 mmol/L (10-20); BUN (Urea Nitrogen) 13 mg/dL (9.8-20.1); Bilirubin, Total 0.4 mg/dL (0.2-1.2); Calc. Creatinine Clearance 0 mL/min (70-130); Calcium 9.6 mg/dL (7.8-10.44); Carbon Dioxide 24 mmol/L (23-31); Chloride 104 mmol/L (98-107); Estimated GFR 81; Glucose 123 mg/dL (83-110); Magnesium 2.2 mg/dL (1.6-2.6); Potassium 3.6 mmol/L (3.5-5.1); Protein, Total 6.9 g/dL (5.8-8.1); Sodium 139 mmol/L (136-145)
[2024-01-16] MEDS ORDERED: Acetaminophen 325 MG TAB PO SCH (20:00)
[2024-01-16] MEDS ORDERED: traMADol HCl 50 MG TAB PO PRN (20:01)
[2024-01-16 21:13] LABS: Bilirubin Negative (Negative); Blood, Urine Trace (Negative); CAUTI Indications for Culture Alt mental st,lethar; Glucose, Urine (Dipstick) Normal (Negative); Ketone, Urine 20 mg/dL (Negative); Leukocyte 500 Leu/uL (Negative); Nitrite Negative (Negative); Protein, Urine (Dipstick) 20 mg/dL (Neg-Trace); Specific Gravity, Urine 1.027 (1.002-1.036); Urobilinogen Normal mg/dL (Less than 2); pH, Urine 7.5 (5.0-9.0)
[2024-01-16 21:17] LABS: Calcium Oxalate Crystals 2+ HPF (None Seen); Renal Epithelial 0-3 HPF (None Seen); Transitional Epithelial 0-3 HPF (None Seen)
[2024-01-16 21:18] LABS: Bacteria/HPF Rare-Few HPF (None Seen); Clarity Hazy (Clear)
[2024-01-16 21:20] LABS: Urine Culture Reflex No No
[2024-01-16] MEDS: Famotidine/PF 20 mg/2ml Vial SLOW IVP SCH (21:48)
[2024-01-16] MEDS: Ketorolac Tromethamine 30 MG (1 mL) VIAL IVP SCH (21:51)
[2024-01-16] MEDS: Senokot S 8.6-50 MG TAB PO SCH (21:51)
[2024-01-16] MEDS: HYDROmorphone 0.5 MG/0.5 ML SYRINGE SLOW IVP SCH ×2 (22:10→22:40)
[2024-01-16] MEDS: Sodium Chloride 0.9% 1,000 ML IV SCH (22:24)
[2024-01-16] MEDS: Acetaminophen 500 MG TAB PO SCH (22:25)
[2024-01-16 22:48] VITALS: BMI 21.4
[2024-01-17] MEDS: Ketorolac Tromethamine 30 MG (1 mL) VIAL IVP SCH (00:42)
[2024-01-17] MEDS: traMADol HCl 50 MG TAB PO SCH (01:13)
[2024-01-17 06:19] LABS: #Basophils 0.05 10x3/uL (0.0-0.2); #Eosinphils Less than 0.03 10x3/uL (0.0-0.7); %Basophils 0.5 % (0.0-1.0); %Eosinophils 0.2 % (0.0-10.0); %Lymphocytes 16.6 % (21.0-51.0); %Monocytes 9.1 % (0.0-10.0); %Neutrophils 73.4 % (42.0-75.0); Hematocrit 30.1 % (36.0-47.0); Hemoglobin 9.6 g/dL (12.0-16.0); Mean Corpuscular HGB CONC 31.9 g/dL (32.0-36.0); Mean Corpuscular Hemoglobin 28.1 pg (27.0-31.0); Mean Platelet Volume 9.9 fL (7.4-10.4); Platelet Count 272 10x3/uL (130-400); RBC Distribution Width 13.6 % (11.5-14.5); Red Blood Cell (RBC) Count 3.42 mill/uL (4.20-5.40)
[2024-01-17] MEDS: Morphine 2 MG/ML VIAL SLOW IVP PRN (06:30)
[2024-01-17 06:48] LABS: Anion Gap 9 mmol/L (10-20); BUN (Urea Nitrogen) 11 mg/dL (9.8-20.1); Calc. Creatinine Clearance 58 mL/min (70-130); Calcium 8.6 mg/dL (7.8-10.44); Carbon Dioxide 24 mmol/L (23-31); Chloride 105 mmol/L (98-107); Estimated GFR 89; Glucose 112 mg/dL (83-110); Potassium 4.1 mmol/L (3.5-5.1); Sodium 134 mmol/L (136-145)
[2024-01-17] MEDS ORDERED: CEFAZOLIN 2 GM in Sodium Chloride 0.9% 100 ML IVPB SCH (07:45)
[2024-01-17] MEDS: Polyethylene Glycol 3350 17 GM Packet PO SCH (10:59)
[2024-01-17] MEDS ORDERED: CEFAZOLIN 2 GM VIAL ONE (12:54)
[2024-01-17] MEDS ORDERED: Sodium Chloride 0.9% 100 ML ONE (12:55)
[2024-01-17] MEDS ORDERED: fentaNYL PF 100 MCG/2 ML SYRINGE ONE (13:01)
[2024-01-17] MEDS ORDERED: PROPOFOL 20 ML ONE ×2 (13:02→15:12)
[2024-01-17] MEDS ORDERED: PHENYLEPHRINE-NS 100 MCG/ML 10 ML SYRINGE ONE (13:17)
[2024-01-17] MEDS ORDERED: Dexamethasone 20 MG/5 ML VIAL ONE (13:17)
[2024-01-17] MEDS ORDERED: Lidocaine 1% PF 5 ML VIAL ONE (13:17)
[2024-01-17] MEDS ORDERED: ePHEDrine Sulfate 50 MG/10 ML VIAL ONE (13:21)
[2024-01-17] MEDS ORDERED: Ketamine In 0.9 % NaCl 50 MG/5 ML SYRINGE ONE (13:39)
[2024-01-17] MEDS ORDERED: fentaNYL 50 mcg/mL 1 mL Vial ONE ×2 (15:57→16:14)
[2024-01-17] MEDS ORDERED: Ondansetron PF 4 MG/2 ML Vial ONE (16:15)
[2024-01-17] MEDS: Morphine 4 MG/ML VIAL SLOW IVP PRN (17:15)
[2024-01-17] MEDS: CEFAZOLIN 2 GM in Sodium Chloride 0.9% 100 ML IVPB SCH (20:40)
[2024-01-18] MEDS: Levothyroxine Sodium 75 MCG TAB PO SCH (05:12)
[2024-01-18 05:48] LABS: #Basophils Less than 0.03 10x3/uL (0.0-0.2); #Eosinphils Less than 0.03 10x3/uL (0.0-0.7); %Basophils 0.1 % (0.0-1.0); %Lymphocytes 5.3 % (21.0-51.0); %Monocytes 6.6 % (0.0-10.0); %Neutrophils 87.7 % (42.0-75.0); Hematocrit 25.6 % (36.0-47.0); Hemoglobin 8.2 g/dL (12.0-16.0); Mean Corpuscular Hemoglobin 28.1 pg (27.0-31.0); Mean Corpuscular Volume 87.7 fL (78.0-98.0); Mean Platelet Volume 10.4 fL (7.4-10.4); Platelet Count 237 10x3/uL (130-400); RBC Distribution Width 13.5 % (11.5-14.5); Red Blood Cell (RBC) Count 2.92 mill/uL (4.20-5.40)
[2024-01-18] MEDS: Ibuprofen 200 MG TAB PO SCH (08:35)
[2024-01-18] MEDS: Famotidine 20 MG TAB PO SCH (08:41)
[2024-01-19 05:43] LABS: #Basophils 0.05 10x3/uL (0.0-0.2); %Basophils 0.6 % (0.0-1.0); %Eosinophils 1.2 % (0.0-10.0); %Lymphocytes 22.2 % (21.0-51.0); %Neutrophils 67.8 % (42.0-75.0); Hematocrit 23.8 % (36.0-47.0); Hemoglobin 7.6 g/dL (12.0-16.0); Mean Corpuscular HGB CONC 31.9 g/dL (32.0-36.0); Mean Corpuscular Hemoglobin 27.3 pg (27.0-31.0); Mean Corpuscular Volume 85.6 fL (78.0-98.0); Mean Platelet Volume 10.6 fL (7.4-10.4); Platelet Count 222 10x3/uL (130-400); RBC Distribution Width 13.9 % (11.5-14.5); Red Blood Cell (RBC) Count 2.78 mill/uL (4.20-5.40)
[2024-01-19 21:28] VITALS: BP 130/68; TEMP 98.3
== END 2024-01-19 21:45 | DRG 481 ==
LOC: ERS 17:51 → SURG B 18:54
PROVIDERS: ADMIT Surgery; ATTEND Surgery
PROC: 0QS904Z Reposition Left Femoral Shaft with Internal Fixation Device, Open Approach (ICD-10-PCS; principal; 2024-01-17)
PROC: 3E033XZ Introduction of Vasopressor into Peripheral Vein, Percutaneous Approach (ICD-10-PCS; 2024-01-17)
DX: S72.302A Unspecified fracture of shaft of left femur, initial encounter for closed fracture (principal); M97.02XA Periprosthetic fracture around internal prosthetic left hip joint, initial encounter; W18.30XA Fall on same level, unspecified, initial encounter; G89.11 Acute pain due to trauma; E03.9 Hypothyroidism, unspecified; K21.9 Gastro-esophageal reflux disease without esophagitis; E78.00 Pure hypercholesterolemia, unspecified; Z96.642 Presence of left artificial hip joint; Z96.652 Presence of left artificial knee joint; Z98.890 Other specified postprocedural states; Z90.49 Acquired absence of other specified parts of digestive tract; Z98.891 History of uterine scar from previous surgery
CPT/HCPCS: 36415; 51702; 70450; 71045; 71275; 72170; 80048; 80053; 81001; 83735; 85025; 85610; 85730; 93005; 93306; 93880; 96374; 96375; 96376; C1713; G0390; J1100; J1170; J1885; J2270; J2272; J2405; J2704; J3010; J3490; J7050; Q9967; S0028

== ENCOUNTER 2024-08-15 12:46 | Outpatient (CLI) | payer MEDICARE | END 2024-08-15 12:47 | disposition home or self-care (01) | LOC: BICMAMMO 12:46 | PROVIDERS: ATTEND Family Medicine | DX: Z12.31 Encounter for screening mammogram for malignant neoplasm of breast (principal); Z91.89 Other specified personal risk factors, not elsewhere classified | CPT/HCPCS: 77063; 77067 ==

== ENCOUNTER 2024-11-02 11:20 | Inpatient (IN) | payer MEDICARE ==
[2024-11-02] MEDS ORDERED: fentaNYL 50 mcg/mL 1 mL Vial ONE ×2 (11:45→12:01)
[2024-11-02 12:27] LABS: #Basophils 0.07 10x3/uL (0.0-0.2); %Basophils 0.7 % (0.0-1.0); %Eosinophils 1.3 % (0.0-10.0); %Lymphocytes 13.5 % (21.0-51.0); %Monocytes 6.3 % (0.0-10.0); %Neutrophils 77.6 % (42.0-75.0); Hematocrit 30.9 % (36.0-47.0); Hemoglobin 9.7 g/dL (12.0-16.0); Mean Corpuscular HGB CONC 31.4 g/dL (32.0-36.0); Mean Corpuscular Hemoglobin 25.6 pg (27.0-31.0); Mean Corpuscular Volume 81.5 fL (78.0-98.0); Mean Platelet Volume 9.6 fL (7.4-10.4); Platelet Count 342 10x3/uL (130-400); RBC Distribution Width 14.7 % (11.5-14.5); Red Blood Cell (RBC) Count 3.79 mill/uL (4.20-5.40)
[2024-11-02] MEDS ORDERED: Morphine 2 MG/ML VIAL ONE (12:32)
[2024-11-02 12:40] LABS: INR-International Normal Ratio 1.1
[2024-11-02 12:41] LABS: PTT 22.1 sec (22.9-36.1)
[2024-11-02 12:51] LABS: ALT (SGPT) 44 U/L (Less than 34); AST (SGOT) 58 U/L (11-34); Albumin 3.4 g/dL (3.1-4.5); Alkaline Phosphatase 59 U/L (40-110); Anion Gap 13 mmol/L (10-20); BUN (Urea Nitrogen) 16 mg/dL (9.8-20.1); Bilirubin, Total 0.4 mg/dL (0.3-1.2); Calc. Creatinine Clearance 0 mL/min (70-130); Calcium 8.8 mg/dL (7.8-10.44); Carbon Dioxide 25 mmol/L (23-31); Chloride 104 mmol/L (98-107); Estimated GFR 88; Globulin 3.1 g/dL (2.4-3.5); Glucose 132 mg/dL (83-110); Protein, Total 6.5 g/dL (5.8-8.1); Sodium 138 mmol/L (136-145)
[2024-11-02] MEDS ORDERED: HYDROmorphone 0.5 MG/0.5 ML SYRINGE ONE ×2 (13:03→15:31)
[2024-11-02] MEDS ORDERED: Ondansetron PF 4 MG/2 ML Vial ONE ×2 (14:28→15:31)
[2024-11-02] MEDS ORDERED: Ondansetron ODT 4 MG TAB PO PRN (16:35)
[2024-11-02] MEDS ORDERED: Dextrose 5% in Water 1,000 ML IV PRN (16:35)
[2024-11-02] MEDS ORDERED: Glucagon 1 MG/ML KIT IM PRN (16:35)
[2024-11-02] MEDS ORDERED: hydrALAZINE 20 MG/ML VIAL SLOW IVP PRN (16:35)
[2024-11-02] MEDS ORDERED: Dextrose 50% Abboject 50 ML SYRINGE SLOW IVP PRN (16:35)
[2024-11-02 19:02] LABS: Bacteria/HPF None Seen HPF (None Seen); Bilirubin Negative (Negative); Blood, Urine Negative (Negative); CAUTI Indications for Culture Pelvic or flank pain; Clarity Clear (Clear); Glucose, Urine (Dipstick) Normal (Negative); Ketone, Urine 60 mg/dL (Negative); Leukocyte 25 Leu/uL (Negative); Nitrite Negative (Negative); Protein, Urine (Dipstick) Negative (Neg-Trace); RBC/HPF 0-3 HPF (0-3); Specific Gravity, Urine 1.017 (1.002-1.036); Squamous Epithelial 0-3 HPF (0-3); Urobilinogen Normal mg/dL (Less than 2)
[2024-11-02 19:03] LABS: Urine Culture Reflex No No
[2024-11-02] MEDS ORDERED: Acetaminophen 500 MG TAB ONE (19:11)
[2024-11-02] MEDS: Methocarbamol 500 MG TAB PO PRN (20:03)
[2024-11-02] MEDS: HYDROcodone/Acetaminophen 5/325 mg Tablet PO PRN (20:04)
[2024-11-02] MEDS: Morphine 2 MG/ML VIAL SLOW IVP PRN (22:04)
[2024-11-02] MEDS: Ondansetron PF 4 MG/2 ML Vial IVP PRN (22:08)
[2024-11-03] MEDS: Lactulose 20 GM (30 mL) UDCUP PO SCH (00:22)
[2024-11-03] MEDS: Acetaminophen/Codeine 30-300mg Tablet PO PRN (03:47)
[2024-11-03 05:36] VITALS: BMI 23.0
[2024-11-03 05:36] LABS: #Basophils 0.03 10x3/uL (0.0-0.2); %Basophils 0.4 % (0.0-1.0); %Eosinophils 0.7 % (0.0-10.0); %Lymphocytes 13.2 % (21.0-51.0); %Monocytes 9.6 % (0.0-10.0); %Neutrophils 75.7 % (42.0-75.0); Hemoglobin 8.2 g/dL (12.0-16.0); Mean Corpuscular HGB CONC 31.5 g/dL (32.0-36.0); Mean Corpuscular Hemoglobin 24.9 pg (27.0-31.0); Mean Platelet Volume 10.3 fL (7.4-10.4); Platelet Count 284 10x3/uL (130-400); RBC Distribution Width 14.9 % (11.5-14.5); Red Blood Cell (RBC) Count 3.29 mill/uL (4.20-5.40)
[2024-11-03 05:52] LABS: Anion Gap 9 mmol/L (10-20); BUN (Urea Nitrogen) 12 mg/dL (9.8-20.1); Calc. Creatinine Clearance 60 mL/min (70-130); Calcium 8.5 mg/dL (7.8-10.44); Carbon Dioxide 24 mmol/L (23-31); Chloride 104 mmol/L (98-107); Estimated GFR 85; Glucose 121 mg/dL (83-110); Potassium 4.2 mmol/L (3.5-5.1); Sodium 133 mmol/L (136-145)
[2024-11-03] MEDS: Losartan 25 MG TAB PO SCH (07:51)
[2024-11-03] MEDS: Levothyroxine Sodium 75 MCG TAB PO SCH (07:51)
[2024-11-03] MEDS ORDERED: CEFAZOLIN 2 GM in Sodium Chloride 0.9% 100 ML IVPB SCH (08:00)
[2024-11-03] MEDS ORDERED: fentaNYL 50 mcg/mL 1 mL Vial ONE ×4 (09:10→12:57)
[2024-11-03] MEDS ORDERED: PROPOFOL 20 ML ONE (09:15)
[2024-11-03] MEDS ORDERED: Lidocaine 1% PF 5 ML VIAL ONE (09:16)
[2024-11-03] MEDS ORDERED: CEFAZOLIN 2 GM VIAL ONE (09:35)
[2024-11-03] MEDS ORDERED: Rocuronium Bromide 10 MG/ML (10ML VIAL) ONE (09:50)
[2024-11-03] MEDS ORDERED: PHENYLEPHRINE-NS 100 MCG/ML 10 ML SYRINGE ONE (09:58)
[2024-11-03] MEDS ORDERED: Dexamethasone 4 mg/ml Vial ONE (12:00)
[2024-11-03] MEDS ORDERED: Ondansetron PF 4 MG/2 ML Vial ONE ×2 (12:00→12:45)
[2024-11-03] MEDS ORDERED: SUGAMMADEX SODIUM 200 MG/2 ML VIAL ONE (12:05)
[2024-11-03] MEDS: Sodium Chloride 0.9% 500 ML IV SCH (17:07)
[2024-11-03] MEDS: CEFAZOLIN 2 GM in Sodium Chloride 0.9% 100 ML IVPB SCH (17:08)
[2024-11-03] MEDS: Lactated Ringer's 1,000 ML IV SCH (20:35)
[2024-11-03] MEDS: Lactated Ringer's 500 ML IV SCH (20:36)
[2024-11-04] MEDS: Acetaminophen 325 MG TAB PO PRN (06:11)
[2024-11-04] MEDS: Levothyroxine Sodium 75 MCG TAB PO SCH (06:12)
[2024-11-04 08:27] LABS: #Basophils Less than 0.03 10x3/uL (0.0-0.2); #Eosinophils Less than 0.03 10x3/uL (0.0-0.7); %Basophils 0.1 % (0.0-1.0); %Lymphocytes 12.3 % (21.0-51.0); %Monocytes 14.1 % (0.0-10.0); %Neutrophils 73.2 % (42.0-75.0); Hematocrit 16.6 % (36.0-47.0); Hemoglobin 5.3 g/dL (12.0-16.0); Mean Corpuscular HGB CONC 31.9 g/dL (32.0-36.0); Mean Corpuscular Hemoglobin 25.5 pg (27.0-31.0); Mean Corpuscular Volume 79.8 fL (78.0-98.0); Mean Platelet Volume 9.8 fL (7.4-10.4); Platelet Count 188 10x3/uL (130-400); Red Blood Cell (RBC) Count 2.08 mill/uL (4.20-5.40)
[2024-11-04] MEDS: FLU (Fluad Triv) TS24-25 (65UP)/MF59C/PF 45 MCG/0.5 ML Syringe IM ONE (09:01)
[2024-11-04] MEDS: Polyethylene Glycol 3350 17 GM Packet PER TUBE SCH (09:10)
[2024-11-04] MEDS: Senokot S 8.6-50 MG TAB PO SCH (09:24)
[2024-11-04] MEDS ORDERED: Calcium Carbonate 500 MG ChewTAB PO PRN (13:39)
[2024-11-04] MEDS: TETANUS, DIPHTHERIA TOX,ADULT (TDVAX) 0.5 ML VIAL IM ONE (16:15)
[2024-11-04 17:25] VITALS: BMI 23.0
[2024-11-04] MEDS: Famotidine 20 MG TAB PO SCH (20:09)
[2024-11-05 05:30] LABS: #Basophils 0.05 10x3/uL (0.0-0.2); %Basophils 0.6 % (0.0-1.0); %Eosinophils 1.2 % (0.0-10.0); %Monocytes 11.6 % (0.0-10.0); %Neutrophils 67.6 % (42.0-75.0); Hematocrit 26.2 % (36.0-47.0); Hemoglobin 8.8 g/dL (12.0-16.0); Mean Corpuscular HGB CONC 33.6 g/dL (32.0-36.0); Mean Corpuscular Hemoglobin 28.2 pg (27.0-31.0); Mean Platelet Volume 9.9 fL (7.4-10.4); Platelet Count 177 10x3/uL (130-400); Red Blood Cell (RBC) Count 3.12 mill/uL (4.20-5.40)
[2024-11-05 05:37] LABS: Anion Gap 10 mmol/L (10-20); BUN (Urea Nitrogen) 8 mg/dL (9.8-20.1); Calc. Creatinine Clearance 70 mL/min (70-130); Carbon Dioxide 23 mmol/L (23-31); Chloride 109 mmol/L (98-107); Estimated GFR 91; Glucose 99 mg/dL (83-110); Potassium 3.9 mmol/L (3.5-5.1); Sodium 138 mmol/L (136-145)
[2024-11-05 12:01] LABS: #Basophils 0.04 10x3/uL (0.0-0.2); %Basophils 0.5 % (0.0-1.0); %Eosinophils 1.4 % (0.0-10.0); %Lymphocytes 15.2 % (21.0-51.0); %Monocytes 10.9 % (0.0-10.0); %Neutrophils 71.3 % (42.0-75.0); Hematocrit 26.5 % (36.0-47.0); Hemoglobin 8.9 g/dL (12.0-16.0); Mean Corpuscular HGB CONC 33.6 g/dL (32.0-36.0); Mean Corpuscular Hemoglobin 28.3 pg (27.0-31.0); Mean Corpuscular Volume 84.4 fL (78.0-98.0); Mean Platelet Volume 9.7 fL (7.4-10.4); Platelet Count 210 10x3/uL (130-400); RBC Distribution Width 15.9 % (11.5-14.5); Red Blood Cell (RBC) Count 3.14 mill/uL (4.20-5.40)
[2024-11-05] MEDS: cefTRIAXone\\ROCEPHIN 1 GM in Sodium Chloride 0.9% 100 ML IVPB SCH (13:25)
[2024-11-05] MEDS: Azithromycin 500 MG in Sodium Chloride 0.9% 250 ML 250 ML IVPB SCH (15:22)
[2024-11-05] MEDS ORDERED: cloNIDine 0.1 MG TAB PO SCH (15:30)
[2024-11-05] MEDS: Enoxaparin 40 MG (0.4 mL) SYRINGE SC SCH (20:55)
[2024-11-06 05:00] LABS: #Basophils 0.06 10x3/uL (0.0-0.2); %Basophils 0.6 % (0.0-1.0); %Eosinophils 3.3 % (0.0-10.0); %Lymphocytes 12.6 % (21.0-51.0); %Monocytes 7.2 % (0.0-10.0); %Neutrophils 75.5 % (42.0-75.0); Hemoglobin 8.9 g/dL (12.0-16.0); Mean Corpuscular HGB CONC 34.2 g/dL (32.0-36.0); Mean Corpuscular Hemoglobin 28.6 pg (27.0-31.0); Mean Corpuscular Volume 83.6 fL (78.0-98.0); Mean Platelet Volume 9.9 fL (7.4-10.4); Platelet Count 246 10x3/uL (130-400); RBC Distribution Width 16.4 % (11.5-14.5); Red Blood Cell (RBC) Count 3.11 mill/uL (4.20-5.40)
[2024-11-06] MEDS: Lidocaine 4% Patch TD SCH (09:10)
[2024-11-06] MEDS: Morphine 2 MG/ML VIAL SLOW IVP PRN (10:01)
[2024-11-06 11:46] VITALS: TEMP 98.7
[2024-11-06 14:28] VITALS: BP 99/61
[2024-11-06] MEDS: Magnesium Citrate 300 ML BOT PO SCH (16:28)
[2024-11-06] MEDS ORDERED: Transdermal Patch Removal TOP SCH (21:00)
== END 2024-11-06 16:47 | DRG 480 ==
LOC: ERS 11:20 → SURG A 17:45
PROVIDERS: ADMIT Surgery; ATTEND Surgery
PROC: 0QSB04Z Reposition Right Lower Femur with Internal Fixation Device, Open Approach (ICD-10-PCS; principal; 2024-11-03)
PROC: 0QSC06Z Reposition Left Lower Femur with Intramedullary Internal Fixation Device, Open Approach (ICD-10-PCS; 2024-11-03)
PROC: 0QPC04Z Removal of Internal Fixation Device from Left Lower Femur, Open Approach (ICD-10-PCS; 2024-11-03)
PROC: 30233N1 Transfusion of Nonautologous Red Blood Cells into Peripheral Vein, Percutaneous Approach (ICD-10-PCS; 2024-11-04)
PROC: 30233K1 Transfusion of Nonautologous Frozen Plasma into Peripheral Vein, Percutaneous Approach (ICD-10-PCS; 2024-11-04)
DX: S72.401A Unspecified fracture of lower end of right femur, initial encounter for closed fracture (principal); J18.9 Pneumonia, unspecified organism; D62 Acute posthemorrhagic anemia; S72.402A Unspecified fracture of lower end of left femur, initial encounter for closed fracture; M97.12XA Periprosthetic fracture around internal prosthetic left knee joint, initial encounter; M81.0 Age-related osteoporosis without current pathological fracture; E78.5 Hyperlipidemia, unspecified; E03.9 Hypothyroidism, unspecified; W18.30XA Fall on same level, unspecified, initial encounter; I10 Essential (primary) hypertension; F10.90 Alcohol use, unspecified, uncomplicated; Z96.642 Presence of left artificial hip joint; K21.9 Gastro-esophageal reflux disease without esophagitis; Z90.710 Acquired absence of both cervix and uterus; Z88.5 Allergy status to narcotic agent; Z79.82 Long term (current) use of aspirin; Z79.890 Hormone replacement therapy; Z79.899 Other long term (current) drug therapy; Z90.49 Acquired absence of other specified parts of digestive tract; Z90.89 Acquired absence of other organs
CPT/HCPCS: 36415; 36430; 71045; 71250; 74177; 80048; 80053; 81001; 85025; 85610; 85730; 86850; 86900; 86901; 87040; 90714; 93005; 96374; 96375; 96376; C1713; C1889; G0390; J0456; J0696; J1100; J1171; J1650; J2272; J2405; J2704; J3010; J7030; J7050; J7120; P9016; P9059